=== PATIENT | male | born 1965 | race Caucasian/White ===

== ENCOUNTER → 2022-12-30 | Outpatient (REF) | payer OTHER ==
[~2022-12-30] MED LIST: CEPH500C; GABA600T4; NIFE-3
== END ==
LOC: M SFHCPLAZ 12:58
PROVIDERS: ATTEND Internal Medicine Infectious Disease
DX: M86.642 Other chronic osteomyelitis, left hand (principal)

== ENCOUNTER 2023-01-22 12:03 | Outpatient (CLI) | payer OTHER ==
[2023-01-22] MEDS ORDERED: DALBAVANCIN 1,500 MG in D5W 250 ML IV ONE (12:30)
[2023-01-22 12:34] VITALS: BP 157/89; O2SAT 98
[2023-01-22 13:30] VITALS: BP 182/92; O2SAT 100
== END 2023-01-22 13:30 | disposition home or self-care (01) ==
LOC: M INFU 12:03
PROVIDERS: ATTEND Internal Medicine Infectious Disease
DX: M86.9 Osteomyelitis, unspecified (principal)
CPT/HCPCS: 96365; J0875

== ENCOUNTER 2023-01-29 12:10 | Outpatient (CLI) | payer OTHER ==
[~2023-01-29] VITALS: Ht 172.7 cm; Wt 81.0 kg
[2023-01-29 12:10] VITALS: BP 158/76; O2SAT 98
[~2023-01-29 12:10] MED LIST changes: +DALBAVANCIN 1,500 MG in D5W 250 ML IV ONE
[2023-01-29 12:49] LABS: BASO # 0.1 10^3/uL (0.0-0.2); BASO % 0.8 % (0.0-1.0); EOS % 0.6 % (0.0-3.0); HEMATOCRIT 44.8 % (42.0-52.0); HEMOGLOBIN 15.7 g/dl (13.5-17.5); LYMPH # 1.7 10^3/uL (1.5-5.0); LYMPH % 25.7 % (24.0-44.0); MEAN CORPUSCULAR HEMOGLOBIN 36.6 pg (27.0-33.0); MEAN CORPUSCULAR VOLUME 104.4 fl (80.0-96.0); MONO # 0.7 10^3/uL (0.0-0.8); MONO % 10.4 % (2.0-8.0); NEUTROPHILS % 62.2 % (36.0-66.0); PLATELET COUNT, AUTOMATED 145 10^3/uL (150-450); RED BLOOD COUNT 4.29 10^6/uL (4.30-6.10); WHITE BLOOD COUNT 6.4 10^3/uL (4.0-10.0)
[2023-01-29 13:22] LABS: BLOOD UREA NITROGEN 12 MG/DL (9-23); C REACTIVE PROTEIN QUANTITATIV < 0.40 MG/DL (<1.0); CARBON DIOXIDE LEVEL 25 MMOL/L (20-31); CHLORIDE LEVEL 106 MMOL/L (98-107); CREATININE FOR GFR 0.76 MG/DL (0.70-1.30); GLOMERULAR FILTRATION RATE > 60.0 (>56); GLUCOSE, FASTING 96 MG/DL (60-100); POTASSIUM SERUM 4.8 MMOL/L (3.5-5.1); SODIUM LEVEL 138 MMOL/L (136-145)
[2023-01-29 13:30] VITALS: BP 170/79; O2SAT 98
== END 2023-01-29 13:30 | disposition home or self-care (01) ==
LOC: M INFU 12:10
PROVIDERS: ATTEND Internal Medicine Infectious Disease
DX: M86.9 Osteomyelitis, unspecified (principal)
CPT/HCPCS: 80048; 85025; 86140; 96365; J0875

== ENCOUNTER → 2023-02-19 | Outpatient (CLI) | payer OTHER ==
[~2023-02-19] MED LIST changes: -DALBAVANCIN 1,500 MG in D5W 250 ML IV ONE
== END ==
LOC: M SOG 14:36
PROVIDERS: ATTEND Orthopaedic Surgery Hand Surgery
DX: M79.642 Pain in left hand (principal); M19.042 Primary osteoarthritis, left hand; S60.457A Superficial foreign body of left little finger, initial encounter; X58.XXXA Exposure to other specified factors, initial encounter; Y92.9 Unspecified place or not applicable; Y93.9 Activity, unspecified; Y99.9 Unspecified external cause status; S68.121A Partial traumatic metacarpophalangeal amputation of left index finger, initial encounter

== ENCOUNTER → 2023-02-27 | Outpatient (CLI) | payer OTHER | LOC: M IRPRO 12:39 | PROVIDERS: ATTEND Surgery Vascular Surgery | DX: I73.9 Peripheral vascular disease, unspecified (principal); Z53.9 Procedure and treatment not carried out, unspecified reason ==

== ENCOUNTER → 2023-11-27 | Outpatient (CLI) | payer OTHER | LOC: M RAD 12:14 | PROVIDERS: ATTEND Surgery | DX: I70.262 Atherosclerosis of native arteries of extremities with gangrene, left leg (principal) ==

== ENCOUNTER → 2024-02-26 | Outpatient (CLI) | payer OTHER ==
[~2024-02-26] MED LIST changes: +GABA-1490; -GABA600T4; +ISOVUE-370 76% 100ML VIAL As Ordered ONE
== END ==
LOC: M RAD 16:04
PROVIDERS: ATTEND Plastic Surgery Surgery of the Hand
DX: I96 Gangrene, not elsewhere classified (principal)
CPT/HCPCS: 73206; Q9967